=== PATIENT | male | born 1945 | race Caucasian/White ===

== ENCOUNTER 2020-10-09 18:55 | Inpatient (IN) | payer MEDICARE, OTHER ==
[~2020-10-09] VITALS: Ht 182.9 cm; Wt 58.8 kg
[2020-10-09 19:54] LABS: HEMOGLOBIN 16.6 gm/dl (14.0-17.5); RED BLOOD COUNT 4.85 M/UL (4.20-5.50); WHITE BLOOD COUNT 6.1 K/UL (4.5-11.0)
[2020-10-09 20:16] LABS: BUN/CREATININE RATIO 14 (0-10)
[2020-10-10] MEDS ORDERED: PROAIR DIGIHAL90 MCG PO (12:07)
[2020-10-10] MEDS ORDERED: VITAMIN D350 MC3 PO (12:08)
[2020-10-10] MEDS ORDERED: ELIQUIS5 MG PO (12:08)
[2020-10-10] MEDS ORDERED: DULOXETINE HCL30 MG PO (12:09)
[2020-10-10] MEDS ORDERED: ROBAXIN 750 MG750 MG PO (12:10)
[2020-10-10] MEDS ORDERED: ADVAIR 250-501 EACH INH (12:10)
[2020-10-10] MEDS ORDERED: METOPROLOL SUCC25 MG PO (12:11)
[2020-10-10] MEDS ORDERED: CRESTOR20 MG PO (12:11)
[2020-10-10] MEDS ORDERED: FLOMAX 0.4 MG0.4 MG PO (12:12)
[2020-10-10] MEDS ORDERED: SYMBICORT 160-1 INHA INH (12:13)
--- NOTE | 2020-10-10 17:42 | NUR ---
PATIENT REFUSED TELE AT THIS TIME. NOTIFIED DR. JARAMILLO
--- NOTE | 2020-10-11 06:24 | NUR ---
REPORTED CRITICAL PCO2 LEVEL FROM ABG TO DR MCDONOUGH. PT RESTING QUIETLY, FREE OF DISTRESS. RECIEVED NO NEW ORDERS. WILL CONTINUE TO [facility].
[2020-10-12 07:25] LABS: HEMOGLOBIN 14.3 gm/dl (14.0-17.5); RED BLOOD COUNT 4.21 M/UL (4.20-5.50); WHITE BLOOD COUNT 7.7 K/UL (4.5-11.0)
[2020-10-12 07:45] LABS: BUN/CREATININE RATIO 15 (0-10)
[2020-10-13 04:56] LABS: HEMOGLOBIN 14.1 gm/dl (14.0-17.5); RED BLOOD COUNT 4.24 M/UL (4.20-5.50); WHITE BLOOD COUNT 6.6 K/UL (4.5-11.0)
[2020-10-13 05:36] LABS: BUN/CREATININE RATIO 17 (0-10)
[2020-10-14 04:21] LABS: HEMOGLOBIN 15.3 gm/dl (14.0-17.5); RED BLOOD COUNT 4.56 M/UL (4.20-5.50); WHITE BLOOD COUNT 6.9 K/UL (4.5-11.0)
[2020-10-14 04:39] LABS: BUN/CREATININE RATIO 20 (0-10)
[2020-10-15 06:57] LABS: HEMOGLOBIN 14.4 gm/dl (14.0-17.5); RED BLOOD COUNT 4.25 M/UL (4.20-5.50); WHITE BLOOD COUNT 7.4 K/UL (4.5-11.0)
[2020-10-15 07:21] LABS: BUN/CREATININE RATIO 23 (0-10)
--- NOTE | 2020-10-15 10:44 | NUR ---
patient refused to take his medications after i handed the pills to him and stated he will take it when his doctor comes and see him. reported to dr. pemberton and stated will come and see him .
--- NOTE | 2020-10-15 12:05 | NUR ---
patient has taken his medications this time with his given it to him.
[2020-10-16 06:42] LABS: RED BLOOD COUNT 4.49 M/UL (4.20-5.50)
[2020-10-16 07:00] LABS: BUN/CREATININE RATIO 23 (0-10)
[2020-10-17 02:36] LABS: BUN/CREATININE RATIO 26 (0-10)
[2020-10-17] MEDS ORDERED: LOPRESSOR 50 MG50 MG PO (11:55)
[2020-10-17] MEDS ORDERED: LASIX20 MG PO (11:57)
[2020-10-17] MEDS ORDERED: ZESTRIL2.5 MG PO (11:59)
--- NOTE | 2020-10-17 16:25 | NUR ---
unable to contact [facility] r/t home health services. instructed patient and family will contact tomorrow if home health was ordered
== END 2020-10-17 14:23 | disposition home health service (06) | DRG 291 ==
LOC: ER1 18:55 → M/S 10-10 06:46 → CDU 10-10 06:46 → M/S 10-10 17:03
PROVIDERS: Physician Assistant; Physician Assistant Medical; ADMIT Internal Medicine
DX: I11.0 Hypertensive heart disease with heart failure (principal); G93.41 Metabolic encephalopathy; J96.22 Acute and chronic respiratory failure with hypercapnia; J96.21 Acute and chronic respiratory failure with hypoxia; J44.1 Chronic obstructive pulmonary disease with (acute) exacerbation; N17.9 Acute kidney failure, unspecified; E87.3 Alkalosis; I48.19 Other persistent atrial fibrillation; Z20.822 Contact with and (suspected) exposure to COVID-19; E78.5 Hyperlipidemia, unspecified; D69.6 Thrombocytopenia, unspecified; E87.6 Hypokalemia; I27.20 Pulmonary hypertension, unspecified; N40.0 Benign prostatic hyperplasia without lower urinary tract symptoms; F17.210 Nicotine dependence, cigarettes, uncomplicated; Z82.49 Family history of ischemic heart disease and other diseases of the circulatory system; Z79.01 Long term (current) use of anticoagulants; Z83.438 Family history of other disorder of lipoprotein metabolism and other lipidemia
CPT/HCPCS: ECHO; 36415; 36600; 70450; 71045; 80048; 80053; 81001; 82140; 82550; 82553; 82607; 82746; 82803; 83735; 83874; 83880; 83921; 84132; 84439; 84443; 84484; 85025; 85027; 93005; 93306; 94640; 94664; 94760; 96374; 97161; 97166; 99285; J1940; U0002

== ENCOUNTER → 2021-01-03 | Outpatient (CLI) | payer MEDICARE, OTHER ==
[~2021-01-03] MED LIST: ADVAIR 250-501 EACH INH; CRESTOR20 MG PO; DULOXETINE HCL30 MG PO; ELIQUIS5 MG PO; FLOMAX 0.4 MG0.4 MG PO; LASIX20 MG PO; LOPRESSOR 50 MG50 MG PO; METOPROLOL SUCC25 MG PO; PROAIR DIGIHAL90 MCG PO; ROBAXIN 750 MG750 MG PO; SYMBICORT 160-1 INHA INH; VITAMIN D350 MC3 PO; ZESTRIL2.5 MG PO
== END ==
LOC: HEART 5 13:58
DX: J44.9 Chronic obstructive pulmonary disease, unspecified (principal)
CPT/HCPCS: 94060; 94729